=== PATIENT | male | born 1985 | race Caucasian/White ===

== ENCOUNTER 2016-08-22 20:30 | Emergency (ER) | payer BC ==
--- NOTE | 2016-08-22 20:51 | ED ---
Throat Pain/Nasal Congestion - HPI Summary HPI Summary: 30m presents with cerumen impaction. He states that he can't hear well out of either of his ears. He says all of the prescription drops do not work for him. He denies any fever or ear pain. He denies any sinus congestion, tinnitus, sore throat, chest pain or SOB. - History of Current Complaint Chief Complaint: EDEarPain Time Seen by Provider: 08/22/16 20:36 PMH/Surg Hx/FS Hx/Imm Hx Endocrine/Hematology History: Denies: Hx Anticoagulant Therapy Respiratory History: Denies: Hx Asthma Infectious Disease History: Denies: Traveled Outside the [place] in Last 30 Days - Family History Known Family History: Positive: Hypertension - Social History Alcohol Use: Occasionally Substance Use Type: Reports: None Smoking Status (MU): Never Smoked Tobacco Review of Systems Negative: Fever Positive: Other - decrease in hearing Negative: Chest Pain Negative: Shortness Of Breath All Other Systems Reviewed And Are Negative: Yes Physical Exam Triage Information Reviewed: Yes Vital Signs On Initial Exam: Initial Vitals Temp Pulse Resp BP Pulse Ox 98.8 F 97 18 135/79 98 08/22/16 20:32 08/22/16 20:32 08/22/16 20:32 08/22/16 20:32 08/22/16 20:32 Vital Signs Reviewed: Yes Appearance: Positive: Well-Appearing Skin: Positive: Warm, Dry Head/Face: Positive: Normal Head/Face Inspection Eyes: Positive: Normal, EOMI, MANISH, Conjunctiva Clear ENT: Positive: Pharynx normal, TMs normal - once irrigated, Other - ear canal full of cerumen bilateral Respiratory/Lung Sounds: Positive: Clear to Auscultation, Breath Sounds Present Cardiovascular: Positive: Normal, RRR Diagnostics - Vital Signs Vital Signs Temp Pulse Resp BP Pulse Ox 08/22/16 20:32 98.8 F 97 18 135/79 98 - Laboratory Lab Statement: Any lab studies that have been ordered have been reviewed, and results considered in the medical decision making process. EENT Course/Dx - Course Course Of Treatment: 30M presents with cerumen impaction. admits to decrease in hearing. denies any tinnitis or ear pain. on exam both ears have cerumen. irrigation performed by nurse Garcia. after irrigation TM seen and normal. discussed wax dissolving options and patient says nothing works. patient understands and agrees with plan - Differential Diagnoses Differential Diagnoses: Cerumen Impaction, Otitis Externa, Otitis Media - Diagnoses Provider Diagnoses: Cerumen impaction Discharge - Discharge Plan Condition: Good Disposition: ADMITTED TO [facility] Patient Education Materials: Cerumen Impaction (ED) Referrals: Sivakumar Powell MD [Primary Care Provider] - Additional Instructions: Return to ED if develop any new or worsening symptoms
[2016-08-22 22:57] VITALS: BP 112/62
== END 2016-08-22 22:45 | disposition short-term general hospital (02) ==
LOC: ED 20:30
DX: H61.20 Impacted cerumen, unspecified ear (principal)
CPT/HCPCS: 99281

== ENCOUNTER 2023-11-14 01:18 | Inpatient (IN) ==
[2023-11-14 02:05] LABS: ABS Basophils 0.2 10^3/uL (0.0-0.1); ABS Eosinophils 0.4 10^3/uL (0.0-0.5); ABS Monocytes 1.1 10^3/uL (0.0-1.1); ABS Neutrophils 14.3 10^3/uL (1.5-7.6); ABS Nucleated RBC 0.03 10^3/ul; Eosinophil % 2.1 %; Hematocrit 47.5 % (38-53); Hemoglobin 16.2 g/dL (13.2-16.3); Lymphocyte % 11.4 %; Mean Corpuscular Hemoglobin 29.7 pg (27-33); Mean Corpuscular Hgb Conc 34.2 g/dL (31-36); Mean Corpuscular Volume 86.9 fL (80-97); Nucleated Red Blood Cells % 0.1 %/100WBC (0.0-0.8); Platelet Count 352 10^3/uL (150-450); Red Blood Count 5.47 10^6/uL (4.06-5.63); Red Cell Distribution Width 13.8 % (12-17)
[2023-11-14 02:26] LABS: ALT 35 U/L (7-52); AST 22 U/L (13-39); Acetaminophen < 15 mcg/mL; Albumin 4.7 g/dL (3.2-5.2); Albumin/Globulin Ratio 1.4 (1-3); Alcohol, S < 13 mg/dL (<13); Alkaline Phosphatase 136 U/L (35-149); Anion Gap 12 mmol/L (2-16); Blood Urea Nitrogen 17 mg/dL (6-24); CO2 Carbon Dioxide 23 mmol/L (22-32); Calcium 9.7 mg/dL (8.6-10.3); Chloride 100 mmol/L (101-111); Creatinine, Serum 0.92 mg/dL (0.67-1.17); Globulin 3.3 g/dL (2-4); Glucose 88 mg/dL (70-100); Potassium 4.2 mmol/L (3.5-5.0); Salicylate < 2.50 mg/dL (<30); Sodium 135 mmol/L (135-145); Total Bilirubin 0.3 mg/dL (0.2-1.0); eGFR CKD-EPI 109.2 (>60)
[2023-11-14 03:05] LABS: Urine Appearance Clear; Urine Bilirubin Negative (Negative); Urine Blood Negative (Negative); Urine Color Light-Yellow; Urine Glucose Negative (Negative); Urine Ketones Negative (Negative); Urine Nitrite Negative (Negative); Urine Protein Trace (Negative); Urine Specific Gravity 1.025 (1.002-1.030); Urine Urobilinogen Negative (Negative)
[2023-11-14 03:43] LABS: Urine Benzodiazepine Screen None Detected (None Detect); Urine Cannabinoids Screen None Detected (None Detect); Urine Opiates Screen None Detected (None Detect)
[2023-11-14] MEDS ORDERED: Al Hydrox/Mg Hydrox/Simet LIQ 30 ML UDC PO PRN (05:01)
[2023-11-14] MEDS ORDERED: Nicotine GUM 2MG FRUIT FLAVOR PO PRN (06:00)
[2023-11-14] MEDS: Vitamin THERAPEUTIC TAB PO SCH (09:02)
[2023-11-14] MEDS: Nicotine PATCH 14 MG/24 HR PATCH TRANSDERM SCH (09:02)
[2023-11-15 08:14] LABS: ABS Basophils 0.1 10^3/uL (0.0-0.1); ABS Eosinophils 0.5 10^3/uL (0.0-0.5); ABS Lymphocytes 2.7 10^3/uL (1.0-4.8); ABS Monocytes 0.8 10^3/uL (0.0-1.1); ABS Neutrophils 5.2 10^3/uL (1.5-7.6); Eosinophil % 5.4 %; Hematocrit 50.2 % (38-53); Lymphocyte % 28.9 %; Mean Corpuscular Hemoglobin 29.6 pg (27-33); Mean Corpuscular Hgb Conc 33.9 g/dL (31-36); Mean Corpuscular Volume 87.1 fL (80-97); Mean Platelet Volume 7.1 fL (7.5-11.2); Platelet Count 330 10^3/uL (150-450); Red Blood Count 5.76 10^6/uL (4.06-5.63); White Blood Count 9.2 10^3/uL (3.6-10.2)
[2023-11-15 08:57] LABS: HDL Cholesterol 37.6 mg/dL
[2023-11-15 10:19] VITALS: BP 112/73
== END 2023-11-15 12:50 | disposition home or self-care (01) | DRG 881 ==
LOC: ED 01:18 → BSU 04:16
PROVIDERS: ADMIT Psychiatry & Neurology Psychiatry; ATTEND Psychiatry & Neurology Psychiatry